=== PATIENT | female | born 1960 ===

== ENCOUNTER 2018-10-05 11:04 | Inpatient (IN) | payer OTHER ==
[~2018-10-05] VITALS: Ht 154.9 cm; Wt 72.6 kg
[~2018-10-05 11:04] MED LIST: BENTYL10 MG/ML PO; CATAFLAM50 MG PO; CIPRO500 MG PO; COZAAR100 MG; INTESTINEX1 CA1 PO; PROTONIX40 MG PO; TOPROL XL100 MG; ULTRACET PO; VYTORIN 10-40 M1 TAB
[2018-10-05] MEDS ORDERED: TOPROL XL50 M1 (11:57)
== END 2018-10-12 19:48 | disposition home or self-care (01) | DRG 392 ==
LOC: ER 11:04 → MEDI 20:46 → MEDJ 20:46 → MEDI 21:38 → MEDJ 10-07 15:05
PROC: BW21ZZZ Computerized Tomography (CT Scan) of Abdomen and Pelvis (ICD-10-PCS; principal; 2018-10-05)
PROC: 02HV33Z Insertion of Infusion Device into Superior Vena Cava, Percutaneous Approach (ICD-10-PCS; 2018-10-06)
DX: K57.32 Diverticulitis of large intestine without perforation or abscess without bleeding (principal); E03.8 Other specified hypothyroidism; I10 Essential (primary) hypertension; Z77.22 Contact with and (suspected) exposure to environmental tobacco smoke (acute) (chronic); D64.89 Other specified anemias; J45.909 Unspecified asthma, uncomplicated; G93.2 Benign intracranial hypertension

== ENCOUNTER → 2019-10-17 | Emergency (ER) | payer OTHER ==
[~2019-10-17] VITALS: Ht 157.5 cm; Wt 78.0 kg
[~2019-10-17] MED LIST changes: +CLONAZEPAM2 M1; +CRESTOR20 MG; +TOPROL XL50 M1; +TRICOR145 MG
== END | disposition home or self-care (01) ==
LOC: ER 19:13
DX: R10.13 Epigastric pain (principal); K20.8 Other esophagitis

== ENCOUNTER 2020-12-13 07:55 | Outpatient (CLI) | payer OTHER | END 2020-12-13 08:02 | disposition home or self-care (01) | LOC: SONOGRAMA 07:55 | PROVIDERS: ATTEND Pathology Anatomic Pathology & Clinical Pathology | DX: D34 Benign neoplasm of thyroid gland (principal); E04.8 Other specified nontoxic goiter ==